=== PATIENT | female | born 1985 | race Caucasian/White ===

== ENCOUNTER 2020-03-05 03:53 | Outpatient (CLI) | payer BC, SELFPAY ==
--- NOTE | 2020-03-05 08:30 | RT.EKG_ITS ---
APPROVED REPORT Exam: Resting ECG Patient Location: O HR:74 bpm ECG Measurements Heart Rate 74 AXIS OK 183 P 82 QRSd 81 QRS 85 QT 445 T 21 QTc 495 <Conclusion> Sinus rhythm...normal P axis, V-rate 60- 99 Normal Electrocardiogram
== END 2020-03-05 04:13 ==
PROVIDERS: PCP Nurse Practitioner Adult Health; Visit Provider Family Medicine
DX: Z13.6 Encounter for screening for cardiovascular disorders (principal)
CPT/HCPCS: 93005; 93010